=== PATIENT | male | born 1950 | race Caucasian/White ===

== ENCOUNTER 2017-09-13 13:16 | Emergency (ER) | payer MEDICARE, OTHER ==
[2017-09-13] MEDS: ACETAMINOPHEN 325 MG TAB PO (23:17)
[2017-09-13 23:23] LABS: LACTIC ACID 1.7 mmol/L (0.5-2.0)
[2017-09-13 23:24] LABS: ALANINE AMINOTRANSFERASE 30 IU/L (13-69); ALBUMIN/GLOBULIN RATIO 1.25; ALKALINE PHOSPHATASE 57 IU/L (42-121); ANION GAP 18 (8-16); ASPARTATE AMINO TRANSFERASE 39 IU/L (15-46); BILIRUBIN,INDIRECT 0.9 mg/dl (0-1.1); BILIRUBIN,TOTAL 0.9 mg/dl (0.2-1.3); BLOOD UREA NITROGEN 21 mg/dl (7-20); CALCIUM 8.9 mg/dl (8.4-10.2); CARBON DIOXIDE 23 mmol/L (21-31); CHLORIDE 99 mmol/L (97-110); CREATININE 0.87 mg/dl (0.61-1.24); GLUCOSE 202 mg/dl (70-220); POTASSIUM 5.1 mmol/L (3.5-5.1); SODIUM 135 mmol/L (135-144); TOTAL PROTEIN 7.2 g/dl (6.1-8.1)
[2017-09-13 23:30] LABS: ADD UMIC NO; UR ASCORBIC ACID 40 mg/dL (NEGATIVE); UR BILIRUBIN (Dip) NEGATIVE (NEGATIVE); UR BLOOD (Dip) NEGATIVE (NEGATIVE); UR CLARITY SLIGHTLY CLOUDY (CLEAR); UR COLOR YELLOW (YELLOW); UR GLUCOSE (Dip) 2+ mg/dL (NEGATIVE); UR KETONES (Dip) TRACE mg/dL (NEGATIVE); UR LEUKOCYTE ESTERASE (Dip) NEGATIVE Leu/ul (NEGATIVE); UR MUCUS FEW /HPF (NONE SEEN); UR NITRITE (Dip) NEGATIVE (NEGATIVE); UR RBC 1 /HPF (0-5); UR SPECIFIC GRAVITY (Dip) 1.027 (1.003-1.030); UR TOTAL PROTEIN (Dip) NEGATIVE (NEGATIVE); UR UROBILINOGEN (Dip) NEGATIVE (NEGATIVE); UR WBC 1 /HPF (0-5)
[2017-09-13 23:37] LABS: ADD MAN DIFF? NO
[2017-09-13 23:39] LABS: BASOPHILS % 0.8 % (0.0-2.0); HEMATOCRIT 47.3 % (42.0-52.0); HEMOGLOBIN 16.1 g/dl (14.0-18.0); LYMPHOCYTES # 0.6 10^3/ul (0.8-2.9); LYMPHOCYTES % 12.7 % (15.0-51.0); MEAN CORPUSCULAR HEMOGLOBIN 29.2 pg (29.0-33.0); MEAN CORPUSCULAR VOLUME 85.8 fl (82.0-101.0); MEAN PLATELET VOLUME 11.3 fl (7.4-10.4); MONOCYTE # 0.9 10^3/ul (0.3-0.9); MONOCYTES % 17.1 % (0.0-11.0); NEUTROPHIL # 3.4 10^3/ul (1.6-7.5); NEUTROPHILS % 69.2 % (39.0-77.0); PLATELET COUNT 162 10^3/UL (140-415); RED BLOOD COUNT 5.51 10^6/ul (4.70-6.10); RED CELL DISTRIBUTION WIDTH 13.5 % (11.5-14.5)
[2017-09-13 23:50] LABS: TROPONIN-I 0.018 ng/ml (0.00-0.12)
[2017-09-14 00:01] LABS: INR 1.46; PT RATIO 1.4
[2017-09-14 00:02] LABS: PARTIAL THROMBOPLASTIN TIME 37.5 Sec (25.0-35.0)
[2017-09-14 01:11] LABS: LACTIC ACID 1.2 mmol/L (0.5-2.0)
[2017-09-14] MEDS: OSELTAMIVIR 75 MG CAP PO ×2 (02:56→09:04)
[2017-09-14 04:25] LABS: LACTIC ACID 1.9 mmol/L (0.5-2.0)
[2017-09-14] MEDS ORDERED: ONDANSETRON 4 MG INJ IV (04:30)
[2017-09-14] MEDS ORDERED: ALBUTEROL/IPRATROPIUM (NEB) 3 ML AMP HHN (04:30)
[2017-09-14] MEDS ORDERED: NITROGLYCERIN (SL) 0.4 MG TAB SL (04:30)
[2017-09-14] MEDS ORDERED: NACL 0.9% 3 ML SYG IV (04:30)
[2017-09-14] MEDS ORDERED: ACETAMINOPHEN 325 MG TAB PO (04:30)
[2017-09-14] MEDS ORDERED: morphine 2 MG INJ IV (04:30)
[2017-09-14 07:21] LABS: CREATINE KINASE 192 IU/L (23-200)
[2017-09-14 07:30] LABS: CK INDEX 0.1
[2017-09-14 07:36] LABS: CK-MB < 0.22 ng/ml (0.0-2.4); TROPONIN-I < 0.012 ng/ml (0.00-0.12)
[2017-09-14] MEDS: INSULIN ASPART [NOVOLOG] 3 ML PEN SC (08:00)
[2017-09-14] MEDS: ASPIRIN (EC) 81 MG TAB PO (09:00)
[2017-09-14] MEDS: CYCLOSPORINE 0.05% OPH DROPERETTE BOTH EYES (09:00)
[2017-09-14] MEDS: DILTIAZEM 30 MG TAB PO (09:10)
[2017-09-14] MEDS: METOPROLOL (XL) 50 MG TAB PO (09:11)
[2017-09-14] MEDS ORDERED: WARFARIN 5 MG TAB PO (17:00)
[2017-09-14] MEDS ORDERED: MONTELUKAST 10 MG TAB PO (21:00)
[2017-09-14] MEDS ORDERED: ATORVASTATIN 10 MG TAB PO (21:00)
[2017-09-14] MEDS ORDERED: INSULIN GLARGINE [LANtus] 3 ML PEN SC (21:00)
== END 2017-09-14 09:50 | disposition left against medical advice (07) ==
LOC: E/R 13:16
DX: J10.1 Influenza due to other identified influenza virus with other respiratory manifestations (principal); E11.9 Type 2 diabetes mellitus without complications; Z79.01 Long term (current) use of anticoagulants; Z79.4 Long term (current) use of insulin; Z79.82 Long term (current) use of aspirin; Z95.1 Presence of aortocoronary bypass graft
CPT/HCPCS: 36415; 71045; 80053; 81001; 81003; 82550; 82553; 82962; 83605; 84484; 85025; 85610; 85730; 87040; 87086; 87400; 93005; 93306; 96372; 99285-25